=== PATIENT | female | born 1960 | race Caucasian/White ===

== ENCOUNTER 2023-01-10 21:53 | Inpatient (IN) | payer MEDICAID ==
[~2023-01-10] VITALS: Ht 160 cm; Wt 71.4 kg
[~2023-01-10 21:53] MED LIST: CALCIUM PO; CITALOPRAM PO; CYCL-1 PO; MULT-620 PO; VITAMIN A PO; VITAMIN D PO; VITAMIN E PO; [UNRECOGNIZED DRUG - OTHER] PO
--- NOTE | 2023-01-10 22:32 | NUR ---
bleeding is not coming through dressing.
[2023-01-10 22:37] LABS: BASOPHILS # (AUTO) 0.1 X10'3 (0-0.2); BASOPHILS % (AUTO) 0.4 % (0-1); EOSINOPHILS # (AUTO) 0.1 X10'3 (0-0.9); WHITE BLOOD COUNT 17.8 X10'3 (4.5-11.0)
[2023-01-10 22:39] LABS: EOSINOPHILS % (AUTO) 0.7 % (0-6); HEMATOCRIT 42.5 % (35.0-45.0); HEMOGLOBIN 13.9 g/dl (12.0-16.0); LYMPHOCYTES # (AUTO) 1.8 X10'3 (1.1-4.8); MEAN CORPUSCULAR HEMOGLOBIN 26.4 PG (27.0-31.0); MEAN CORPUSCULAR HGB CONC 32.6 g/dL (33.0-36.5); MEAN CORPUSCULAR VOLUME 80.9 FL (78-98); MONOCYTES # (AUTO) 0.9 X10'3 (0-0.9); MONOCYTES % (AUTO) 5.3 % (2-12); NEUTROPHILS # (AUTO) 14.9 X10'3 (1.8-7.7); NEUTROPHILS % (AUTO) 83.6 % (42-75); PLATELET COUNT 742 X10'3 (140-440); RED BLOOD COUNT 5.25 X10'6 (4.20-5.60); RED CELL DISTRIBUTION WIDTH 14.6 % (11.5-14.5)
[2023-01-10 22:51] LABS: ALANINE AMINOTRANSFERASE 22 U/L (12-78); ALBUMIN 3.4 G/DL (3.4-5.0); ALKALINE PHOSPHATASE 74 IU/L (46-116); ANION GAP 12 (8-16); ASPARTATE AMINO TRANSFERASE 21 U/L (10-37); BILIRUBIN,TOTAL 0.1 MG/DL (0.1-1.0); BLOOD UREA NITROGEN 23 MG/DL (7-18); BUN/CREATININE RATIO 28.8 (10.0-20.0); CALCIUM 8.2 MG/DL (8.5-10.1); CHLORIDE 105 MMOL/L (99-107); GLUCOSE 113 MG/DL (70-104); POTASSIUM 3.6 MMOL/L (3.5-5.1); SODIUM 141 MMOL/L (135-145); TOTAL CARBON DIOXIDE 23.6 MMOL/L (24-32); TOTAL PROTEIN 6.7 G/DL (6.4-8.2); eGFR 72 ML/MIN
[2023-01-10] MEDS ORDERED: LIDOcaine 1% W/epiNEPHrine 1:100,000 20ml vial SQ ONE (23:05)
[2023-01-10] MEDS ORDERED: normal saline 1000ML IV soln IVB ONE (23:15)
[2023-01-10] MEDS ORDERED: iohexol 300mg/ml 100ml inj. ONE (23:19)
--- NOTE | 2023-01-10 23:30 | NUR ---
issac thakkar at bedside conducting DUI investigation
[2023-01-10 23:40] LABS: ETHANOL 0.191 GM/DL (0.0-0.010)
[2023-01-11] MEDS ORDERED: LIDOcaine 1% W/epiNEPHrine 1:100,000 20ml vial SQ ONE (00:40)
[2023-01-11] MEDS ORDERED: ondansetron/PF 4mg/2ml inj IV ONE (01:10)
[2023-01-11] MEDS ORDERED: mag hydrox/Alum hydrox/simeth 30ml oral suspension PO PRN (05:10)
[2023-01-11] MEDS ORDERED: dextrose 50%-water 50ml dispensing syringe IV PRN (05:10)
[2023-01-11] MEDS ORDERED: metoclopramide 5 mg/ml inj IV PRN (05:10)
[2023-01-11] MEDS ORDERED: diphenhydrAMINE 50 mg/ml inj IV PRN (05:10)
[2023-01-11] MEDS ORDERED: ondansetron 4mg rapidly disintigrating tab PO PRN (05:10)
[2023-01-11] MEDS ORDERED: haloperidol 5mg tablet PO PRN (05:10)
[2023-01-11] MEDS ORDERED: ondansetron/PF 4mg/2ml inj IV PRN (05:10)
[2023-01-11] MEDS ORDERED: magnesium hydroxide 30ml (MOM) UD suspension PO PRN (05:10)
[2023-01-11] MEDS ORDERED: ipratropium/albuterol 3ml nebule NEB PRN (05:10)
[2023-01-11] MEDS ORDERED: dextrose 5%-1/2 normal saline 1,000 ML IV SCH (05:10)
[2023-01-11] MEDS ORDERED: bisacodyl 10mg suppository rectal RC PRN (05:10)
[2023-01-11] MEDS ORDERED: LORazepam 1 MG tablet PO PRN (05:10)
[2023-01-11] MEDS ORDERED: diphenhydrAMINE 25mg capsule PO PRN (05:10)
[2023-01-11] MEDS ORDERED: LORazepam 2 mg/ml vial IV PRN (05:10)
[2023-01-11] MEDS ORDERED: haloperidol lactate 5mg/ml inj IM PRN (05:10)
[2023-01-11] MEDS ORDERED: pantoprazole 40mg Tablet.DR PO SCH (07:30)
[2023-01-11] MEDS ORDERED: docusate sod 100mg capsule PO SCH (08:00)
[2023-01-11] MEDS ORDERED: thiamine 100mg/ml 2ml inj. IV SCH (08:00)
[2023-01-11] MEDS ORDERED: folic acid 1mg/0.2ml inj IV SCH (08:00)
[2023-01-11] MEDS ORDERED: azithromycin/NS 500mg/250ml 250 ML IV SCH (08:00)
[2023-01-11] MEDS ORDERED: methylPREDNISolone sod succ/PF 40mg inj. IV SCH (08:00)
[2023-01-11] MEDS ORDERED: CefTRIAXone/D5W-Rocephin 1gm 50 ML IV SCH (08:00)
[2023-01-11 08:02] LABS: APTT 27 SECONDS (22-32)
[2023-01-11 08:14] LABS: LIPASE 104 U/L (73-393); MAGNESIUM 1.7 MG/DL (1.5-2.4); PHOSPHORUS 4.1 MG/DL (2.3-4.5)
--- NOTE | 2023-01-11 08:20 | NUR ---
PT AND FAMILY WONDERING ABOUT ROLO RN AND MD HANKINS MADE AWARE.
[2023-01-11 08:24] VITALS: BP 121/65
[2023-01-11] MEDS ORDERED: temazepam 15mg capsule PO PRN (21:00)
[2023-01-15] MEDS ORDERED: thiamine 100mg tablet PO SCH (08:00)
[2023-01-15] MEDS ORDERED: folic acid 1mg tablet PO SCH (08:00)
== END 2023-01-11 13:28 | disposition left against medical advice (07) | DRG 351 ==
LOC: ER 21:54 → ED HOLD 01-11 05:19
PROVIDERS: ADMIT Family Medicine; ATTEND Internal Medicine
PROC: 0HQCXZZ Repair Left Upper Arm Skin, External Approach (ICD-10-PCS; principal; 2023-01-10)
PROC: 0JQF3ZZ Repair Left Upper Arm Subcutaneous Tissue and Fascia, Percutaneous Approach (ICD-10-PCS; 2023-01-10)
PROC: BW241ZZ Computerized Tomography (CT Scan) of Chest and Abdomen using Low Osmolar Contrast (ICD-10-PCS; 2023-01-10)
DX: S41.012A Laceration without foreign body of left shoulder, initial encounter (principal); J96.01 Acute respiratory failure with hypoxia; I95.9 Hypotension, unspecified; S09.90XA Unspecified injury of head, initial encounter; T17.908A Unspecified foreign body in respiratory tract, part unspecified causing other injury, initial encounter; Z53.29 Procedure and treatment not carried out because of patient's decision for other reasons; J44.1 Chronic obstructive pulmonary disease with (acute) exacerbation; F10.129 Alcohol abuse with intoxication, unspecified; M81.0 Age-related osteoporosis without current pathological fracture; Z85.3 Personal history of malignant neoplasm of breast; Z87.891 Personal history of nicotine dependence; Z90.710 Acquired absence of both cervix and uterus; Z88.5 Allergy status to narcotic agent; Z88.8 Allergy status to other drugs, medicaments and biological substances; Y93.89 Activity, other specified; Y92.89 Other specified places as the place of occurrence of the external cause; Y99.8 Other external cause status; V89.2XXA Person injured in unspecified motor-vehicle accident, traffic, initial encounter; Z79.899 Other long term (current) drug therapy
CPT/HCPCS: 12005; 36415; 70450; 71045; 71260; 72125; 73030; 74177; 80053; 80320; 83690; 83735; 83880; 84100; 84443; 84484; 85025; 85610; 85730; 99285; A4615; A6449; G0378; J0456; J0696; J2405; J2920; J3411; J7030; Q9967

== ENCOUNTER 2025-07-17 12:44 | Emergency (ER) | payer MEDICARE, MEDICAID ==
[~2025-07-17] VITALS: Ht 160 cm; Wt 74.3 kg
[2025-07-17 12:52] VITALS: TEMP 98.2
--- NOTE | 2025-07-17 14:52 | Physician Documentation ---
History of Present Illness ~ Chief Complaint: Arm Pain Stated Complaint: POSS BLOOD CLOT IN ARM Time Seen by MD: 14:16 Primary Medical Doctor: [facility] Patient is a 65-year-old female that reports to the emergency department for evaluation of an erythematous lump in her upper left extremity. Patient reports that she was seen in the emergency department several days ago and treated for colitis at that time she had an IV placed in that arm since that time she has had increased swelling and pain with warmth and redness to the site. Reports that she has polycythemia at baseline she does take a daily aspirin but it she is concerned about a clot at this time. Patient denies any other symptoms at this time. Tetanus within 5 years: Yes Medication Reconciliation Allergies: Coded Allergies: acetaminophen (Unverified Allergy, Intermediate, N/V, 07/17/25) codeine (Unverified Allergy, Intermediate, N/V, 07/17/25) hydrocodone (Unverified Allergy, Intermediate, N/V, 07/17/25) oxycodone (Unverified Allergy, Intermediate, N/V, 07/17/25) Uncoded Allergies: NOVACAINE (Allergy, Unknown, 03/18/14) Scheduled Aspirin (Aspirin EC), 1 TAB PO DAILY, (Reported) Hydroxyurea (Hydroxyurea), 1 CAP PO DAILY, (Reported) Multivitamins (Multivitamins), 1 TABLET PO DAILY, (Reported) [Armadex], PO DAILY, (Reported) [Calcium], PO DAILY, (Reported) [Citalopram], PO DAILY, (Reported) [Vitamin A], PO DAILY, (Reported) [Vitamin D], PO DAILY, (Reported) [Vitamin E], PO DAILY, (Reported) Scheduled PRN Cyclobenzaprine* (Cyclobenzaprine*), 1 TABLET PO Q8H PRN for muscle spasms Past Medical History Past Medical History: Osteoporosis, Breast Cancer Past Surgical History: hysterectomy, tonsillectomy Alcohol Use: Occasionally Drug Use: none Lives In: Home Occupation: employed Review of Systems All Other Systems at this time: Reviewed and Negative ROS As stated above in the HPI, otherwise all systems are reviewed and negative. Physical Exam Vital Signs: Temperature: 98.2, Source: Oral, Heart Rate: 107, Respiratory Rate: 16, BP: 107/61, Pulse Oximetry: 95, Weight: 74.300 Oxygen Flow Rate: 0 Physical Exam VITALS: Reviewed and as above. GENERAL: Alert, no apparent distress. HEENT: Normocephalic, atraumatic, PERRL, EOMI, dry mucosa, no erythema RESPIRATORY: Lungs clear, normal breath sounds, no respiratory distress. CHEST: No accessory muscle use, no retractions CV: Regular rate, rhythm, no edema, no murmur, No: JVD GI: Soft, non-tender, bowels sounds present, no rebound, guarding, or rigidity BACK: No CVA tenderness, or swelling MUSCULOSKELETAL No deformities, no edema SKIN: Warm and dry, have warmth and redness in the medial aspect of the left upper extremity noted during examination. NEURO: Oriented x4, No motor or sensory deficit PSYCH: Normal mood and affect, no agitation Progress Results/Orders Results/Orders Orders - SHASTA TENORIO [employer] Vl Venous (07/17/25 14:49) CMP (07/17/25 16:26) Pt Inr (07/17/25 16:26) PTT (07/17/25 16:26) Completed Orders - SHASTA TENORIO [employer]IST[employer] Vl Venous (07/17/25 14:49) Cbc/Diff (07/17/25 16:26) Vital Signs 07/17/25 07/17/25 07/17/25 12:52 14:54 16:40 Temp 98.2 Pulse 107 62 64 Resp 16 15 15 B/P (MAP) 107/61 115/72 (86) 122/65 (84) Pulse Ox 95 99 96 O2 Flow Rate 0 Laboratory Tests Test 07/17/25 16:35 White Blood Count 6.8 Red Blood Count 3.90 L Hemoglobin 13.4 Hematocrit 40.1 Mean Corpuscular Volume 102.8 H Mean Corpuscular Hemoglobin 34.4 H Mean Corpuscular Hemoglobin Concent 33.5 Red Cell Distribution Width 15.9 H Platelet Count 334 Mean Platelet Volume 7.6 Neutrophils (%) (Auto) 62.5 Lymphocytes (%) (Auto) 25.3 Monocytes (%) (Auto) 8.8 Eosinophils (%) (Auto) 3.1 Basophils (%) (Auto) 0.3 Neutrophils # (Auto) 4.2 Lymphocytes # (Auto) 1.7 Monocytes # (Auto) 0.6 Eosinophils # (Auto) 0.2 Basophils # (Auto) 0.0 CBC Comment Coagulation Comments Chemistry Comments Medical Decision Making Additional information obtaine: other Findings 66-year-old female with polycythemia vera presented to the ED for evaluation of left upper extremity swelling and discomfort. Left upper extremity ultrasound performed during this visit revealed a subacute occlusive thrombus in the left basilic vein at the antecubital fossa. No additional thrombus was identified. Diagnosis: Subacute occlusive thrombus, left basilic vein, in the setting of polycythemia vera. Medical Decision-Making: Given the diagnosis of upper extremity DVT in the context of polycythemia vera, therapeutic anticoagulation is indicated per NCCN guidelines. Apixaban (Eliquis) was selected for outpatient management due to its efficacy and safety profile in cancer-associated VTE. The patient is already taking hydroxyurea for cytoreduction and 81 mg aspirin daily for thromboprophylaxis.The risks and benefits of continuing aspirin with anticoagulation were discussed; combination therapy increases bleeding risk and will be reassessed at follow-up. Apixaban Dosing Schedule: 10 mg orally twice daily for the first 7 days Then 5 mg orally twice daily for the remainder of the first 3 months Patient was educated on the importance of strict adherence to the dosing schedule and not discontinuing Eliquis without medical advice. Concurrent Medications: Hydroxyurea (cytoreductive therapy for PV) Aspirin 81 mg daily (antiplatelet therapy for PV. Follow-Up: Patient will follow up with her oncologist tomorrow for ongoing management of polycythemia vera and review of anticoagulation plan. Advised to schedule follow-up with primary care provider for additional monitoring and coordination of care. Return Precautions: Patient was counseled to return to the emergency department immediately for any of the following: New or worsening swelling, pain, or redness of the affected limb Signs of bleeding (unusual bruising, blood in urine or stool, severe headache, vomiting blood) Shortness of breath, chest pain, or sudden neurological symptoms Fever, chills, or signs of infection Inability to take medications as prescribed Patient education provided regarding medication side effects, bleeding risk, and the need for prompt evaluation of any red flag symptoms. Summary: Diagnosis confirmed by ultrasound. Initiated apixaban per recommended dosing for VTE. Patient is on hydroxyurea and aspirin for PV; bleeding risk will be monitored. Follow-up with oncology and primary care arranged. Return precautions and medication education provided. Patient will discussed today's medication regimen in her current medication regimen with her oncologist tomorrow morning. General Diff Dx:Considerations: Include: Abrasion, Contusion, Fracture, Hematoma, Laceration, Malunion, Neurovascular injury, Open fracture, Sprain, Ulcer, Other Shoulder Diff Dx:Consideration: Include: AC separation, Adhesive capsulitis, Arthritis, Bicipital tendonitis, Calcific tendonitis, Cervical disc disease, Contusion, Dislocation, Fracture-humerus, Fracture-scapula, Fracture-clavicle, GB disease, Hematoma, Impingement syndrome, Myocardial infarction, Neurovascular injury, Open fracture-humerus, Open fracture-scapula, Open fracture-clavicle, Rotator cuff injury, SC dislocatoin, Sprain, Subacromial bursitis, Other Elbow Diff Dx:Considerations: Include: Abrasion, Arthritis, Contustion, DJD, Fracture-humerus, Fracture-radial head, Fracture-radius, Fracture-ulna, Gout, Hematoma, Laceration, Neurovascular injury, Olecranon bursitis, Open fracture, Osteomyelitis, Radial head subluxation, Rheumatoid arthritis, Septic, Sprain, Ulcer, Other Wrist Diff Dx:Considerations: Include: Abrasion, Arthritis, DJD, Gout, Rheumatoid, Septic, Carpal tunnel snydrome, Contusion, Dislocation, Fracture- carpal, Fracture-radius, Fracture-ulna, Ganglion, Laceration, Neurovascular injury, Open fracture, Strain, Other Hand Diff Dx:Considerations: Include: Abrasion, Arthritis, Contusion, DJD, Felon, Fracture-carpal, Fracture-metacarpal, Fracture-phalynx, Fracture-radius, Fracture-ulna, Gout, Hematoma, Herpetic herve, Laceration, Neurovascular injury, Open fracture, Paronychia, Rheumatoid arthritis, Septic, Sprain, Subungual hematoma, Tenosynovitis, Volar plate injury, Cellulitis, Malunion, Other Finger Diff Dx:Considerations: Include: Abrasion, Cellulitis, Contusion, Dislocation, Fracture, Hematoma, Laceration, Neurovascular injury, Open fracture, Subungual hematoma, Other Departure Disposition: 01 HOME / SELF CARE / HOMELESS Impression: Primary Impression: Basilic vein thrombosis Additional Impressions: Swelling Pain Additional Instructions: You have a blood clot in a vein in your left arm (basilic vein) and a condition called polycythemia vera, which increases your risk for blood clots. You are starting a new medication called apixaban (Eliquis) to help prevent the clot from getting bigger and to lower your risk of new clots. How to take your medication: Take apixaban exactly as prescribed. For the first 7 days, take 10 mg twice a day. After that, take 5 mg twice a day for the next 3 months. Do not skip doses. If you miss a dose, take it as soon as you remember, but do not double up. Continue taking your other medications (hydroxyurea and aspirin) unless your doctor tells you otherwise. These help manage your polycythemia vera and lower your risk of future clots. What to expect: You may notice some bruising or mild bleeding (like nosebleeds or gum bleedin g). This can happen with blood thinners. Most people do not have serious side effects, but it is important to watch for warning signs. Strict return precautions: Return to the emergency department immediately if you notice any of the following: New or worsening swelling, pain, redness, or warmth in your arm or leg Sudden shortness of breath, chest pain, or trouble breathing Severe headache, confusion, trouble speaking, or weakness in your face, arm, or leg Heavy or uncontrolled bleeding (vomiting blood, blood in stool or urine, coughing up blood) Unusual bruising or bleeding that does not stop Fever, chills, or signs of infection near the clot Any other symptoms that worry you or feel severe Follow-up: You have an appointment with your oncologist tomorrow to review your treatment and make sure your medications are working well. Schedule a follow-up with your primary care provider for ongoing care and monitoring. Other important information: Avoid activities that could cause injury or bleeding while you are on apixaban. Tell all your healthcare providers that you are taking a blood thinner. If you have any questions about your medications or symptoms, call your doctor or return to the emergency department. These instructions are designed to help you safely manage your condition and know when to seek urgent care. Please follow up with her oncologist tomorrow discussed your new medication regimen and your current medication right regimen with them at your appointment tomorrow. Please return to the emergency department with any worsening or recurrent symptoms or any additional concerning symptoms that we discussed here today. Referrals: NO PRIMARY CARE PROVIDER (PCP) Prescriptions Apixaban (Eliquis) 5 Mg (74 Tabs) Tab.ds.pk 1 TAB PO BID for 90 Days, #180 TAB 0 Refills Prov: SHASTA TENORIO 07/17/25 Apixaban (Eliquis) 5 Mg (74 Tabs) Tab.ds.pk 2 TAB PO BID for 7 Days, #30 TAB 0 Refills Prov: SHASTA TENORIO 07/17/25 Education Educated: Patient Educated regarding: diagnosis, treatment, need for follow up SHASTA TENORIO [facility] Jul 17, 2025 14:52
--- NOTE | 2025-07-17 15:58 | VASCULAR REPORT ---
Left lower extremity deep venous study Date: 07/17/2025 03:06 PM Clinical History: Left upper extremity pain Comparison: None Findings: Duplex Doppler evaluation including color Doppler and spectral/pulsed waveform analysis of the deep and superficial veins of the left upper extremities was performed for evaluation of deep venous thrombosis LEFT: Subacute appearing occlusive thrombus seen in the left basilic vein of the left antecubital fossa. No other thrombus seen in the left upper extremity. Parenchymal flow of the left upper extremity. IMPRESSION: 1. Subacute appearing occlusive thrombus in the left basilic vein of the left antecubital fossa. 2. No other thrombus seen in the left upper extremity.
[2025-07-17 16:40] VITALS: BP 122/65; PULSE 64; RESP 15; O2SAT 96
[2025-07-17] MEDS ORDERED: ASPI81TA52 PO (16:41)
[2025-07-17] MEDS ORDERED: HYDR500C2 PO (16:41)
[2025-07-17 16:44] LABS: MEAN PLATELET VOLUME 7.6 FL (7.4-10.4); RED CELL DISTRIBUTION WIDTH 15.9 % (11.5-14.5)
[2025-07-17 16:57] LABS: APTT 27 SECONDS (22-32); INR 1.0 INR
[2025-07-17 16:59] LABS: CREATININE 0.85 MG/DL (0.40-0.90); TOTAL CARBON DIOXIDE 29.8 MMOL/L (24-32); eCRCL 53 ML/MIN; eGFR 67 ML/MIN
[2025-07-17] MEDS ORDERED: APIX5TAB5 PO (17:21)
== END 2025-07-17 17:47 | disposition home or self-care (01) ==
LOC: ER 12:45
DX: I82.612 Acute embolism and thrombosis of superficial veins of left upper extremity (principal); Z88.5 Allergy status to narcotic agent; Z90.710 Acquired absence of both cervix and uterus; Z79.82 Long term (current) use of aspirin
CPT/HCPCS: 36415; 80053; 85025; 85610; 85730; 93971; 99284